=== PATIENT | male | born 1980 | race American Indian/Alaskan Native ===

== ENCOUNTER 2018-03-04 16:39 | Inpatient (IN) | payer OTHER ==
[2018-03-04] MEDS ORDERED: NACL 0.9% 1000 ML 1,000 ML IV ONE ×2 (17:57→21:57)
[2018-03-04] MEDS ORDERED: TORADOL IV ONE (17:57)
[2018-03-04 18:00] LABS: Bacteria,Urine 1+ /HPF (Negative); Bilirubin,Urine NEG (Negative); Blood,Urine NEG (Negative); Color,Urine Yellow (Yellow); Mucus,Urine FEW /HPF; Protein,Urine <15 mg/dL mg/dL (Negative)
[2018-03-04 18:02] LABS: WBC,Urine < 1.0 /HPF (0.0-6.0)
--- NOTE | 2018-03-04 18:26 | Emergency Department Report ---
ED Abdominal Pain HPI - General Chief Complaint: Abdominal Pain Stated Complaint: STOMACH PAIN Time Seen by Provider: 03/04/18 17:55 Source: patient Mode of arrival: Ambulatory Limitations: No Limitations - History of Present Illness Initial Comments: This is a 37-year-old male nontoxic, well nourished in appearance, no acute signs of distress presents to the ED with c/o of abdominal pain. Patient denies any nausea or vomiting. Patient describes abdominal pain as cramping and aching with level of 8/10. Patient stated pain is in the right lower abdominal area but denies any radiation of pain. Patient denies chest pain, short of breath, fever, chills, headache, stiff neck, numbness or tingling. Patient denies any diarrhea or constipation. Patient denies any recent travels. Patient denies any allergies or significant PMH. MD Complaint: abdominal pain -: This afternoon Location: RLQ Radiation: none Migration to: no migration Severity: mild Severity scale (0 -10): 8 Quality: cramping, aching Consistency: constant Improves With: nothing Worsens With: nothing Associated Symptoms: denies other symptoms. denies: nausea, vomiting, diarrhea, fever, chills, constipation, dysuria, hematemesis, hematochezia, melena, hematuria, anorexia, syncope - Related Data Allergies Allergy/AdvReac Type Severity Reaction Status Date / Time No Known Allergies Allergy Unverified 03/04/18 17:05 ED Review of Systems ROS: Stated complaint: STOMACH PAIN Other details as noted in HPI Constitutional: denies: chills, fever Eyes: denies: eye pain, eye discharge, vision change ENT: denies: ear pain, throat pain Respiratory: denies: cough, shortness of breath, wheezing Cardiovascular: denies: chest pain, palpitations Endocrine: no symptoms reported Gastrointestinal: abdominal pain. denies: nausea, vomiting, diarrhea, constipation Genitourinary: denies: urgency, dysuria Musculoskeletal: denies: back pain, joint swelling, arthralgia Skin: denies: rash, lesions Neurological: denies: headache, weakness, paresthesias Psychiatric: denies: anxiety, depression Hematological/Lymphatic: denies: easy bleeding, easy bruising ED Past Medical Hx - Past Medical History Hx Psychiatric Treatment: Yes (PTSD) Additional medical history: hyperlipidemia, sleep apnea - Surgical History Past Surgical History?: Yes Additional Surgical History: bilateral knee sx - Social History Smoking Status: Current Some Day Smoker Substance Use Type: Alcohol ED Physical Exam - General Limitations: No Limitations General appearance: alert, in no apparent distress - Head Head exam: Present: atraumatic, normocephalic - Eye Eye exam: Present: normal appearance - Neck Neck exam: Present: normal inspection, full ROM. Absent: tenderness, meningismus, lymphadenopathy - Respiratory Respiratory exam: Present: normal lung sounds bilaterally. Absent: respiratory distress, wheezes, rales, rhonchi, stridor, chest wall tenderness, accessory muscle use, decreased breath sounds, prolonged expiratory - Cardiovascular Cardiovascular Exam: Present: regular rate, normal rhythm, normal heart sounds. Absent: bradycardia, tachycardia, irregular rhythm, systolic murmur, diastolic murmur, rubs, gallop - GI/Abdominal GI/Abdominal exam: Present: soft, tenderness (RLQ), normal bowel sounds. Absent: distended, guarding, rebound, rigid, diminished bowel sounds - Expanded GI/Abdominal Exam Expanded GI/Abdominal exam: Present: Carter's sign. Absent: psoas sign, Rovsing's sign, tenderness at Mcburney's Point, ascites - Extremities Exam Extremities exam: Present: normal inspection, full ROM - Back Exam Back exam: Present: normal inspection, full ROM. Absent: tenderness, CVA tenderness (R), CVA tenderness (L), muscle spasm, paraspinal tenderness, vertebral tenderness, rash noted - Neurological Exam Neurological exam: Present: alert, oriented X3 - Psychiatric Psychiatric exam: Present: normal affect, normal mood - Skin Skin exam: Present: warm, dry, intact, normal color. Absent: rash ED Course Vital Signs 03/04/18 03/04/18 03/04/18 17:05 18:17 18:53 Temperature 98.5 F Pulse Rate 72 Respiratory 16 16 16 Rate Blood Pressure 128/78 O2 Sat by Pulse 99 Oximetry - Reevaluation(s) Reevaluation #1: 03/04/18 18:24 Patient is speaking in full sentences with no signs of distress noted. - Consultations Consultation #1: 03/04/18 21:[address] Miller and admitted with Dr. Boykin. ED Medical Decision Making - Lab Data Result diagrams: 03/04/18 18:04 03/04/18 18:04 - Medical Decision Making This is a 37-year-old male that presents with appendicitis. Patient is stable and was examined by me. There is RLQ abdominal tenderness. Patient was discussed with Dr. Miller and agrees for admission with hospitality. Patient to put on NPO now for possible surgery. Patient admitted with Dr. Boykin (hospita list ). Patient received Zosyn and fluids in the ER. Labs obtained. CT obtained. At time of admission, the patient does not seem toxic or ill in appearance. No acute signs of distress noted. Patient agrees to admission treatment plan of care. No further questions noted by the patient. Critical care attestation.: If time is entered above; I have spent that time in minutes in the direct care of this critically ill patient, excluding procedure time. ED Disposition Clinical Impression: Acute appendicitis Qualifiers: Acute appendicitis type: with localized peritonitis Appendicitis gangrene presence: without gangrene Appendicitis perforation presence: without perforation Appendicitis abscess presence: without abscess Qualified Code(s): K35.30 - Acute appendicitis with localized peritonitis, without perforation or gangrene Disposition: -09 OP ADMIT IP TO THIS HOSP Is pt being admited?: Yes Condition: Stable
[2018-03-04 18:40] LABS: Basophils # (Auto) 0.1 K/mm3 (0.0-0.1); Basophils % (Auto) 0.8 % (0.0-1.8); Eosinophils # (Auto) 0.1 K/mm3 (0.0-0.4); Eosinophils % (Auto) 1.2 % (0.0-4.3); Hematocrit 43.2 % (35.5-45.6); Hemoglobin 14.1 gm/dl (11.8-15.2); Lymphocytes # (Auto) 1.9 K/mm3 (1.2-5.4); Lymphocytes % (Auto) 25.9 % (13.4-35.0); Mean Corpuscular HGB Conc 33 % (32-34); Mean Corpuscular Volume 85 fl (84-94); Monocytes # (Auto) 0.7 K/mm3 (0.0-0.8); Monocytes % (Auto) 9.8 % (0.0-7.3); Platelet Count 206 K/mm3 (140-440); Red Blood Count 5.07 M/mm3 (3.65-5.03); Red Cell Distribution Width 13.6 % (13.2-15.2)
[2018-03-04 19:17] LABS: Alanine Aminotransferase 28 units/L (7-56); Albumin 4.7 g/dL (3.9-5); BUN/Creatinine Ratio 18; Blood Urea Nitrogen 18 mg/dL (9-20); Calcium 9.7 mg/dL (8.4-10.2); Hemolysis Index 8
[2018-03-04 19:44] LABS: Bilirubin,Direct < 0.2 mg/dL (0-0.2)
--- NOTE | 2018-03-04 21:48 | Cat Scan Report ---
FINAL REPORT PROCEDURE: CT ABDOMEN PELVIS W CON TECHNIQUE: Computerized axial tomography of the abdomen and pelvis was performed after the IV inject ion of iodinated nonionic contrast. HISTORY: abd pain COMPARISON: No prior studies are available for comparison. FINDINGS: Liver, spleen, pancreas and adrenal glands are within normal limits. Bilateral kidneys demonstrate un iform enhancement without hydronephrosis. Urinary bladder is partially filled with normal outlines. A jorge is of normal caliber. There is no free fluid or free air. Gallbladder is unremarkable. Small bow el loops are within normal limits. Moderate degree residual stool is noted. There is mild degree judy appendiceal fat induration. There is no evidence of any fluid collection. Vertebral height is normal. IMPRESSION: Mild degree periappendiceal fat induration is suspicious for acute appendicitis. There is no evidence of any perforation or abscess formation at the present time.
[2018-03-04] MEDS ORDERED: MORPHINE IV ONE (21:57)
[2018-03-04] MEDS ORDERED: ZOSYN/NS 4.5GM/100ML 4.5 GM/100 ML VIAL IV ONE (22:02)
[2018-03-04] MEDS ORDERED: MORPHINE ONE (22:09)
[2018-03-04] MEDS ORDERED: DILAUDID ONE (23:24)
[2018-03-04] MEDS ORDERED: DILAUDID IV ONE (23:29)
[2018-03-05] MEDS ORDERED: XYLOCAINE 1% 20 mL INFILTRATI ONE
[2018-03-05] MEDS ORDERED: ZOFRAN IV PRN (00:08)
[2018-03-05] MEDS ORDERED: TYLENOL PR PRN (00:11)
[2018-03-05] MEDS ORDERED: D5/0.45NS 1,000 ML IV ONE (02:22)
[2018-03-05] MEDS: D5/0.45NS 1,000 ML IV SCH ×2 (02:25→10:08)
[2018-03-05] MEDS: DILAUDID IV PRN ×2 (03:38→08:02)
[2018-03-05] MEDS ORDERED: DILAUDID ONE ×3 (03:38→12:07)
--- NOTE | 2018-03-05 04:44 | History and Physical Report ---
CHIEF COMPLAINT: Abdominal pain in the right lower quadrant area. HISTORY OF PRESENTING ILLNESS: The patient is a 37-year-old male presenting with right lower quadrant abdominal pain. Pain started some hours prior to presentation. There is no associated nausea or vomiting. Also, there is no history of associated fever, chills, shortness of breath or chest pain. The patient describes pain as aching with level of 8/10. The pain does not radiate and is only located at the right lower quadrant area. PAST MEDICAL HISTORY: Pertinent for PTSD, sleep apnea and hyperlipidemia. PAST SURGICAL HISTORY: Pertinent for bilateral knee surgery. FAMILY HISTORY: Family history is noncontributory. SOCIAL HISTORY: The patient drinks alcohol, smokes cigarettes and does not use illicit drugs. MEDICATIONS: The patient's home medication includes pravastatin 40 mg daily, sertraline 25 mg by mouth daily, Imitrex 25 mg by mouth daily, tamsulosin 0.4 mg daily, trazodone 150 mg by mouth at bedtime. ALLERGIES: There are no known drug allergies. REVIEW OF SYSTEMS: CONSTITUTIONAL: There is no fever, no chills, no diaphoresis. HEENT: There is no headache or sore throat. CARDIOVASCULAR SYSTEM: There is no chest pain or orthopnea. RESPIRATORY SYSTEM: There is no shortness of breath or cough. GASTROINTESTINAL SYSTEM: Right lower quadrant abdominal pain present. No nausea, no vomiting, no diarrhea or constipation. NEUROLOGICAL SYSTEM: There is no numbness, no dizziness, no altered mental status. MUSCULOSKELETAL SYSTEM: There is no joint pain or swelling. DERMATOLOGICAL SYSTEM: There is no skin rash or itching. GENITOURINARY SYSTEM: There is no dysuria, hematuria, or flank pain. Rest of system review is normal. PHYSICAL EXAMINATION: GENERAL: At the time of exam, the patient was found to be alert, oriented x 3 and not in acute distress. VITAL SIGNS: At initial time of presentation show temperature of 98.5 degrees Fahrenheit, pulse of 72, respirations 16, blood pressure 128/78, O2 sat of 99% on room air. HEENT: Show pupils to be equal, round, reactive to light and accommodating. Extraocular muscles are intact. NECK: Neck is supple with no JVD or carotid bruit. CARDIOVASCULAR SYSTEM: Show normal first and second heart sounds with no gallops or murmur. RESPIRATORY SYSTEM: Show good air entry on both sides of the lung with no abnormal breath sounds. GASTROINTESTINAL SYSTEM: Show abdomen to be full, soft with right lower quadrant tenderness and also rebound tenderness is present. There is no rigidity and there is no organomegaly elicited. Bowel sound is normal. NEUROLOGICAL SYSTEM: Neurological system shows no focal deficit. MUSCULOSKELETAL SYSTEM: Show no joint swelling or tenderness. DERMATOLOGICAL SYSTEM: Show no skin rash. GENITOURINARY SYSTEM: Showing no costovertebral angle tenderness. PERTINENT LABORATORY DATA AND IMAGING STUDIES: The patient had a CT of the abdomen and pelvis done with contrast and it shows mild degree periappendiceal fat induration suspicious for acute appendicitis. There was no evidence of perforation or abscess. The patient's lab results show CBC with normal white count, normal hemoglobin and normal hematocrit with CBC differential showing elevated monocyte count of 9.8%. The patient's chemistry was unremarkable. Urinalysis was unremarkable. DIAGNOSIS: Acute appendicitis. PLAN OF ACTION: 1. The patient will be admitted to medical/surgical duran. 2. The patient will remain n.p.o. and will continue surgical consult with Bradley Wing requested by the Emergency Room physician. 3. The patient will be on IV Dilaudid 1 mg every 4 hours as needed for pain and IV Zofran 4 mg every 8 hours as needed for nausea and vomiting. 4. The patient will be on IV D5 half-normal saline at 125 mL an hour and will be on IV Zosyn 3.375 grams q. 8 hours. 5. The patient will be on Tylenol 650 mg per rectum every 4 hours as needed for fever and DVT prophylaxis will be through sequential compression device. JOB# [id number] OCN/NTS
[2018-03-05] MEDS ORDERED: ZOSYN/NS 3.375GM/50ML 3.375 GM/50 ML BAG IV SCH ×2 (06:00→12:00)
[2018-03-05] MEDS ORDERED: ZOFRAN ONE (06:51)
--- NOTE | 2018-03-05 07:26 | Progress Note ---
Assessment and Plan Assessment and plan: Patient is a 37 yo man with a history of OBED, BPH, migraines, PTSD, OA, dyslipidemia, Alcohol and tobacco dependency who presents to [facility] ED with abd pains and found to have Acute Appendicitis. General Surgeon, Dr. Miller was notified. * CT abd/pelvis with contrast IMPRESSION: Mild degree periappendiceal fat induration is suspicious for acute appendicitis. There is no evidence of any perforation or abscess formation at the present time. Acute Appendicitis: NPO bowel rest, GS consulted, empiric abx, IVF, iv dilaudid prn pain control Tobacco dependency: counselor/art therapist on stopping, offer nicotine patch ?Alcohol dependency, ?last drink: quantify how much alcohol he drinks OBED: consult Respiratory Therapy for obed assessment Dysplipidemia: hold statin Obesity, BMI 37.5: counselor/art therapist on lifestyle modifications PTSD: hold Zoloft and trazadone while npo BPH: hold flomax while npo DVT prophylaxis: sq heparin prolonged inpatient services 32 minutes. History Interval history: Patient was seen and examined. Follow-up on current diagnosis of abd pains/appendicitis. Overnight uneventful. Patient denies any chest pain, shortness breath, nausea/vomiting or severe headaches. Imaging, nursing note, chart, labs and old chart reviewed. Discussed with patient. Hospitalist Physical - Physical exam Narrative exam: Gen: WDWN, NAD, Awake, Alert, Orientated HEENT: NCAT, EOMI, PERRL, OP Clear Neck: supple, no adenopathy, no thyromegaly, no JVD CVS/Heart: RRR, normal S1S2, pulses present bilaterally Chest/Lungs: CTA B, Symmetrical chest expansion, good air entry bilaterally GI/Abdomen: soft, ND, RUQ tenderness, good bowel sounds, no rebound /Bladder: no suprapubic tenderness, no CVA or paraspinal tenderness Extermity/Skin: no c/c/e, no obvious rash MSK: FROM x 4 Neuro: CN 2-12 grossly intact, no new focal deficits Psych: calm - Constitutional Vitals: Temp Pulse Resp BP Pulse Ox 97.8 F 59 L 19 133/85 99 03/05/18 02:25 03/05/18 02:25 03/05/18 02:25 03/05/18 07:00 03/05/18 07:00 Results - Labs CBC & Chem 7: 03/04/18 18:04 03/04/18 18:04 Labs: Laboratory Last Values WBC 7.2 K/mm3 (4.5-11.0) 03/04/18 18:04 RBC 5.07 M/mm3 (3.65-5.03) H 03/04/18 18:04 Hgb 14.1 gm/dl (11.8-15.2) 03/04/18 18:04 Hct 43.2 % (35.5-45.6) 03/04/18 18:04 MCV 85 fl (84-94) 03/04/18 18:04 MCH 28 pg (28-32) 03/04/18 18:04 MCHC 33 % (32-34) 03/04/18 18:04 RDW 13.6 % (13.2-15.2) 03/04/18 18:04 Plt Count 206 K/mm3 (140-440) 03/04/18 18:04 Lymph % (Auto) 25.9 % (13.4-35.0) 03/04/18 18:04 Moore % (Auto) 9.8 % (0.0-7.3) H 03/04/18 18:04 Eos % (Auto) 1.2 % (0.0-4.3) 03/04/18 18:04 Baso % (Auto) 0.8 % (0.0-1.8) 03/04/18 18:04 Lymph # 1.9 K/mm3 (1.2-5.4) 03/04/18 18:04 Moore # 0.7 K/mm3 (0.0-0.8) 03/04/18 18:04 Eos # 0.1 K/mm3 (0.0-0.4) 03/04/18 18:04 Baso # 0.1 K/mm3 (0.0-0.1) 03/04/18 18:04 Seg Neutrophils % 62.3 % (40.0-70.0) 03/04/18 18:04 Seg Neutrophils # 4.5 K/mm3 (1.8-7.7) 03/04/18 18:04 Sodium 138 mmol/L (137-145) 03/04/18 18:04 Potassium 4.9 mmol/L (3.6-5.0) 03/04/18 18:04 Chloride 102.1 mmol/L (98-107) 03/04/18 18:04 Carbon Dioxide 24 mmol/L (22-30) 03/04/18 18:04 Anion Gap 17 mmol/L 03/04/18 18:04 BUN 18 mg/dL (9-20) 03/04/18 18:04 Creatinine 1.0 mg/dL (0.8-1.5) 03/04/18 18:04 Estimated GFR > 60 ml/min 03/04/18 18:04 BUN/Creatinine Ratio 18 % 03/04/18 18:04 Glucose 93 mg/dL (75-100) 03/04/18 18:04 Calcium 9.7 mg/dL (8.4-10.2) 03/04/18 18:04 Total Bilirubin 0.50 mg/dL (0.1-1.2) 03/04/18 18:04 Direct Bilirubin < 0.2 mg/dL (0-0.2) 03/04/18 18:04 Indirect Bilirubin 0.3 mg/dL 03/04/18 18:04 AST 33 units/L (5-40) 03/04/18 18:04 ALT 28 units/L (7-56) 03/04/18 18:04 Alkaline Phosphatase 44 units/L (35-129) 03/04/18 18:04 Total Protein 8.3 g/dL (6.3-8.2) H 03/04/18 18:04 Albumin 4.7 g/dL (3.9-5) 03/04/18 18:04 Albumin/Globulin Ratio 1.3 % 03/04/18 18:04 Lipase 17 units/L (13-60) 03/04/18 18:04 Urine Color Yellow (Yellow) 03/04/18 17:32 Urine Turbidity Clear (Clear) 03/04/18 17:32 Urine pH 5.0 (5.0-7.0) 03/04/18 17:32 Ur Specific [place] 1.016 (1.003-1.030) 03/04/18 17:32 Urine Protein <15 mg/dl mg/dL (Negative) 03/04/18 17:32 Urine Glucose (UA) Neg mg/dL (Negative) 03/04/18 17:32 Urine Ketones Neg mg/dL (Negative) 03/04/18 17:32 Urine Blood Neg (Negative) 03/04/18 17:32 Urine Nitrite Neg (Negative) 03/04/18 17:32 Urine Bilirubin Neg (Negative) 03/04/18 17:32 Urine Urobilinogen 2.0 mg/dL (<2.0) 03/04/18 17:32 Ur Leukocyte Esterase Neg (Negative) 03/04/18 17:32 Urine WBC (Auto) < 1.0 /HPF (0.0-6.0) 03/04/18 17:32 Urine RBC (Auto) 1.0 /HPF (0.0-6.0) 03/04/18 17:32 Urine Bacteria (Auto) 1+ /HPF (Negative) 03/04/18 17:32 Urine Mucus Few /HPF 03/04/18 17:32
--- NOTE | 2018-03-05 08:38 | Consultation ---
History of Present Illness Consult date: 03/05/18 Reason for consult: abdominal pain Requesting physician: JANI ESTRELLA Chief complaint: abdominal pain - History of present illness History of present illness: 37yo M with acute onset of RLQ pain since 9am yesterday. Mild nausea. No vomiting. No F/C. +hungry. history of constipation, but this pain is unlike his constipation discomfort in the past. Never had pain like this before. No radiation of pain. Past History Past Medical History: hyperlipidemia, other (sleep apnea, PTSD, mild prostatic hypertrophy) Past Surgical History: Other (bilateral knee surgeries) Social history: other (occasional huka and alcohol). denies: prescription drug abuse, IV drug use Family history: no significant family history Medications and Allergies Allergies Allergy/AdvReac Type Severity Reaction Status Date / Time No Known Allergies Allergy Unverified 03/04/18 17:05 Home Medications Medication Instructions Recorded Confirmed Last Taken Type Pravastatin Sodium [Pravachol] 40 mg PO DAILY 03/05/18 03/05/18 Unknown History SUMAtriptan SUCCINATE [Imitrex] 25 mg PO DAILY PRN 03/05/18 03/05/18 Unknown History Sertraline [Zoloft] 25 mg PO QDAY 03/05/18 03/05/18 Unknown History Tamsulosin HCl [Flomax] 0.4 mg PO DAILY 03/05/18 03/05/18 Unknown History Trazodone HCl 150 mg PO HS 03/05/18 03/05/18 Unknown History Active Meds: Active Medications Acetaminophen (Tylenol) 650 mg AK Q4H PRN PRN Reason: Fever >101 Hydromorphone HCl (Dilaudid) 1 mg IV Q4H PRN PRN Reason: Pain, Moderate (4-6) Last Admin: 03/05/18 08:02 Dose: 1 mg Documented by: Dextrose/Sodium Chloride (D5/0.45ns) 1,000 mls @ 125 mls/hr IV DIRECT ARTEMIO Last Admin: 03/05/18 02:25 Dose: 125 mls/hr Documented by: Piperacillin Sod/Tazobactam Sod (Zosyn/Ns 3.375gm/50ml) 3.375 gm in 50 mls @ 100 mls/hr IV Q8HR ARTEMIO; Protocol Last Admin: 03/05/18 06:07 Dose: 100 mls/hr Documented by: Ondansetron HCl (Zofran) 4 mg IV Q8H PRN PRN Reason: Nausea And Vomiting Last Admin: 03/05/18 06:50 Dose: 4 mg Documented by: Review of Systems - Constitutional no fever, no chills, no chronic pain - Cardiovascular no chest pain - Respiratory no cough, no shortness of breath - Gastrointestinal abdominal pain, nausea, constipation, no vomiting, no diarrhea, no change in bowel habits, no hematemesis, no coffee ground emesis, no BRBPR, no melena, no hematochezia, no loss of appetite, no heartburn, no dyspepsia/bloating - Genitourinary no dysuria, no flank pain - Muskuloskeletal no low back pain - Integumentary no rash, no pruritis, no wounds, no jaundice Exam Vital Signs Temp Pulse Resp BP Pulse Ox 98.5 F 72 16 128/78 99 03/04/18 17:05 03/04/18 17:05 03/04/18 17:05 03/04/18 17:05 03/04/18 17:05 - General physical appearance Positive: well developed, well nourished, no distress, other (appears in mild pain. pleasant. Not toxic) - Eyes Positive: normal occular movement. Negative: icteric - Respiratory Positive: normal expansion, normal respiratory effort, clear to auscultation - Cardiovascular Rhythm: regular - Abdomen Abdomen: Present: soft, tender (focal in RLQ. No Rovsing's. Possible pelvic shake irritation in RLQ only), bowel sounds hypoactive. Absent: distended, masses, rebound, guarding, rigid, wound, surgical scars - Integumentary no rash, no growths, no abnormal pigmentation - Neurologic Neurologic: alert and oriented to time, place and person, motor strength and sensation are grossly intact - Psychiatric Psychiatric: appropriate mood/affect, intact judgment & insight Results - Labs 03/04/18 18:04 03/04/18 18:04 Abnormal lab results 03/04/18 03/04/18 Range/Units 18:04 18:04 RBC 5.07 H (3.65-5.03) M/mm3 Barron % (Auto) 9.8 H (0.0-7.3) % Total Protein 8.3 H (6.3-8.2) g/dL Diabetes panel 03/04/18 Range/Units 18:04 Sodium 138 (137-145) mmol/L Potassium 4.9 (3.6-5.0) mmol/L Chloride 102.1 (98-107) mmol/L Carbon Dioxide 24 (22-30) mmol/L BUN 18 (9-20) mg/dL Creatinine 1.0 (0.8-1.5) mg/dL Glucose 93 (75-100) mg/dL Calcium 9.7 (8.4-10.2) mg/dL AST 33 (5-40) units/L ALT 28 (7-56) units/L Alkaline Phosphatase 44 (35-129) units/L Total Protein 8.3 H (6.3-8.2) g/dL Albumin 4.7 (3.9-5) g/dL Calcium panel 03/04/18 Range/Units 18:04 Calcium 9.7 (8.4-10.2) mg/dL Albumin 4.7 (3.9-5) g/dL Pituitary panel 03/04/18 Range/Units 18:04 Sodium 138 (137-145) mmol/L Potassium 4.9 (3.6-5.0) mmol/L Chloride 102.1 (98-107) mmol/L Carbon Dioxide 24 (22-30) mmol/L BUN 18 (9-20) mg/dL Creatinine 1.0 (0.8-1.5) mg/dL Glucose 93 (75-100) mg/dL Calcium 9.7 (8.4-10.2) mg/dL Adrenal panel 03/04/18 Range/Units 18:04 Sodium 138 (137-145) mmol/L Potassium 4.9 (3.6-5.0) mmol/L Chloride 102.1 (98-107) mmol/L Carbon Dioxide 24 (22-30) mmol/L BUN 18 (9-20) mg/dL Creatinine 1.0 (0.8-1.5) mg/dL Glucose 93 (75-100) mg/dL Calcium 9.7 (8.4-10.2) mg/dL Total Bilirubin 0.50 (0.1-1.2) mg/dL AST 33 (5-40) units/L ALT 28 (7-56) units/L Alkaline Phosphatase 44 (35-129) units/L Total Protein 8.3 H (6.3-8.2) g/dL Albumin 4.7 (3.9-5) g/dL - Imaging CT scan - abdomen: report reviewed, image reviewed CT scan - pelvis: report reviewed, image reviewed Assessment and Plan - Patient Problems (1) Acute appendicitis Current Visit: Yes Status: Acute Qualifiers: Acute appendicitis type: with localized peritonitis Appendicitis gangrene presence: without gangrene Appendicitis perforation presence: without perforation Appendicitis abscess presence: without abscess Qualified Code(s): K35.30 - Acute appendicitis with localized peritonitis, without perforation or gangrene Plan to address problem: Pt stable. Appears to have early, mild appendicitis. Discussed surgery vs medical therapy. Pt opted for surgery. Procedure, risks, benefits of lap appy discussed. Questions answered. Consent obtained. Proceed today to OR. Remain NPO. No anticoagulation. Time=30min
[2018-03-05] MEDS ORDERED: XYLOCAINE 1% 20 mL ONE (11:09)
[2018-03-05] MEDS ORDERED: MARCAINE 0.25% INFILTRATI ONE ×2 (11:09)
[2018-03-05] MEDS ORDERED: VERSED ONE (11:19)
[2018-03-05] MEDS ORDERED: SUBLIMAZE ONE ×2 (11:19→12:24)
[2018-03-05] MEDS ORDERED: ZEMURON IV ONE (12:07)
[2018-03-05] MEDS ORDERED: XYLOCAINE MPF 2% ONE (12:07)
[2018-03-05] MEDS ORDERED: DIPRIVAN 10 MG/ML IV ONE (12:07)
[2018-03-05] MEDS ORDERED: DECADRON ONE (12:43)
--- NOTE | 2018-03-05 13:31 | Post Operative Note ---
Date of procedure: 03/05/18 (dictation:[id number]) Pre-op diagnosis: acute appendicitis Post-op diagnosis: same Findings: swollen, injected appendix. No evidence of rupture Procedure: lap appy Anesthesia: GETA Surgeon: LAURA HAQUE Estimated blood loss: minimal Pathology: list (appendix) Specimen disposition: to lab Condition: stable Disposition: PACU
[2018-03-05] MEDS ORDERED: NORCO 5/325 PO PRN (13:32)
[2018-03-05] MEDS ORDERED: LACTATED RINGERS 1,000 ML ONE (13:43)
--- NOTE | 2018-03-05 16:32 | Operative Report ---
PREOPERATIVE DIAGNOSIS: Acute appendicitis. POSTOPERATIVE DIAGNOSIS: Acute appendicitis. PROCEDURE: Laparoscopic appendectomy. ATTENDING PHYSICIAN: Bradley Miller MD ANESTHESIA: General. ESTIMATED BLOOD LOSS: Minimal. FLUIDS: 900 mL. FINDINGS: Swollen mildly injected appendix with no evidence of rupture or purulent fluid in the vicinity. SPECIMEN: Appendix. DRAINS: None. COMPLICATIONS: None. DISPOSITION: Stable, transferred to Recovery. INDICATIONS: This is a 37-year-old male, who presented with less than 24-hour history of sudden onset of right lower quadrant abdominal pain. CT scan suggested mild appendicitis. The patient is assessed to be in need for laparoscopic appendectomy. Procedure, risks, benefits were explained to the patient. Risks included but were not limited to infection, bleeding, pain, injury to surrounding structures, possible need for open surgery, possible need for further procedures in the future. The patient understood and consented. OPERATIVE NOTE: The patient was brought to the operating room and placed on the table in supine position. After adequate general anesthesia was established, the patient was prepped and draped in usual sterile fashion. Antibiotics had just been administered. SCDs were in place. Time-out was called. I began by placing a Veress needle in the left upper quadrant. We were able to insufflate the abdomen using the Optiview technique, I placed a 5 mm port in the superior aspect of the umbilicus in the midline. We entered the peritoneal cavity safely and I examined the area where the Veress needle was inserted. There was no injury to the underlying structures. Veress needle was removed. We placed a 10 mm port under direct vision in the left lower quadrant, 5 mm port in the suprapubic midline. All sites had been injected with 0.5% Marcaine and 1% lidocaine mix. We began by examining the right lower quadrant area. The rectosigmoid colon was over to the right side, we swung that to the left and then we were able to identify the terminal ileum going into the cecum. We immediately identified the appendix, which was inferior and lateral to the cecum. We divided the mesoappendix with the Harmonic scalpel down to the base. We had a very clean division. Laparoscopic CLEMENT stapler using a blue load was used to divide the appendiceal base with a nice flush hemostatic staple line along the cecum. Specimen placed in an EndoCatch bag left in the side. We then examined our surgical site, it was completely hemostatic. Everything looked very good. We saw no other abnormalities in the abdomen. We removed the 10 mm port along with the specimen bag. We did have to stretch open the fascia in order to get the specimen out and then using the [place]ave[place] fascial closure device, we closed that site with 0 Vicryl suture. We removed the 5 mm port under direct vision. There was no bleeding from either port sites and then finally we desufflated the abdomen through the umbilical port site and then removed the port. Additional local was injected. We used 4-0 Monocryl subcuticular stitches to close the skin at each of the sites. Skin was cleaned and dried. Dermabond was placed. The patient tolerated procedure well. There were no complications. All counts were correct at the end of the case. JOB# [id number] SHERLYN/GILLIAN
[2018-03-05] MEDS: TORADOL IV SCH (17:54)
--- NOTE | 2018-03-05 18:49 | Post Anesthesia Evaluation ---
- Post Anesthesia Evaluation Patient Participated: Yes Airway Patent: Yes Stable Respiratory Function: Yes Nausea/Vomiting: No Temp > 96.8F: Yes Pain Manageable: Yes Adequeate Hydration: Yes Anesthesia Complications: No
[2018-03-05] MEDS ORDERED: LOVENOX SUB-Q SCH (22:00)
[2018-03-06] MEDS: TORADOL IV SCH ×2 (00:10→06:30)
--- NOTE | 2018-03-06 10:19 | Discharge Summary ---
Providers - Providers Date of Admission: 03/05/18 00:03 Date of discharge: 03/06/18 Attending physician: TIAGO GOLDMAN 03/04/18 21:57 Consult to Physician [CONS] Urgent Comment: Consulting Provider: LAURA HAQUE Physician Instructions: Reason For Exam: acute appendicitis Primary care physician: MARYANN CURTIS Hospitalization Reason for admission: acute appendicitis Condition: Stable Pertinent studies: CT [facility]d [facility]: uneventful Disposition: DC- TO HOME OR SELFCARE Time spent for discharge: 30min - Discharge Diagnoses (1) Acute appendicitis Status: Acute Qualifiers: Acute appendicitis type: with localized peritonitis Appendicitis gangrene presence: without gangrene Appendicitis perforation presence: without perforation Appendicitis abscess presence: without abscess Qualified C ode(s): K35.30 - Acute appendicitis with localized peritonitis, without perforation or gangrene Core Measure Documentation - Palliative Care Palliative Care/ Comfort Measures: Not Applicable - Core Measures Any of the following diagnoses?: none - VTE Discharge Requirements Deep Vein Thrombosis/Pulmonary Embolism Present on Admission: No Exam - Constitutional Vitals: Temp Pulse Resp BP Pulse Ox 98.2 F 60 20 108/60 97 03/06/18 05:19 03/06/18 05:19 03/06/18 05:19 03/06/18 05:03/06/18 08:14 General appearance: Present: no acute distress, other (looks good) - EENT Eyes: Present: PERRL (slight scleral hemorrhage on right eye. No change in vision), EOM intact - Respiratory Respiratory effort: normal - Abdominal General gastrointestinal: Present: soft, non-tender, other (incisions C/D/I. mild bruising noted around LLQ incision.) - Integumentary Integumentary: Present: clear, warm, dry Plan Activity: other (no driving until cleared by surgeon) Diet: regular Wound: open to air, keep clean and dry, other (may shower tomorrow. Pat dry wounds. Apply ice pack to wounds 10-15min each time; 4-5 times a day) Special Instructions: no heavy lifting Follow up with: MARYANN CURTIS MD [Primary Care Provider] - 7 Days LAURA HAQUE MD [Staff Physician] - 14 Days Prescriptions: HYDROcodone/APAP 5-325 [[place] 5-325 mg TAB] 2 each PO Q6H PRN #30 tablet PRN Reason: Pain, Moderate (4-6)
[2018-03-06 11:57] VITALS: BP 124/73
== END 2018-03-06 12:10 | disposition home or self-care (01) | DRG 343 ==
LOC: ED 16:39 → 3A 03-05 00:03
PROVIDERS: ADMIT Internal Medicine; ATTEND Internal Medicine
PROC: 0DTJ4ZZ Resection of Appendix, Percutaneous Endoscopic Approach (ICD-10-PCS; principal; 2018-03-05)
DX: K35.30 Acute appendicitis with localized peritonitis, without perforation or gangrene (principal); G47.33 Obstructive sleep apnea (adult) (pediatric); N40.0 Benign prostatic hyperplasia without lower urinary tract symptoms; G43.909 Migraine, unspecified, not intractable, without status migrainosus; M19.90 Unspecified osteoarthritis, unspecified site; E78.5 Hyperlipidemia, unspecified; F17.210 Nicotine dependence, cigarettes, uncomplicated; E66.9 Obesity, unspecified; Z72.89 Other problems related to lifestyle; Z79.899 Other long term (current) drug therapy; Z68.38 Body mass index [BMI] 38.0-38.9, adult; Z71.6 Tobacco abuse counseling; Z71.3 Dietary counseling and surveillance
CPT/HCPCS: 36415; 74177; 80048; 80076; 81001; 83690; 85025; 88304; 94760; 96374; 99285; G0378; J1100; J1170; J1650; J1885; J2250; J2270; J2405; J2543; J2704; J3010; J7030; J7120; Q9967